=== PATIENT | female | born 1935 | race Hispanic/Latino ===

== ENCOUNTER 2017-03-04 12:47 | Emergency (ER) | payer MEDICARE, MEDICAID ==
[~2017-03-04 12:47] MED LIST: ALBU8.5H4 INHALATION; ASPI-973 PO; ATRINH INH; BECL8.7A6 IH; CALC117719 PO; CHOL100045 PO; HYDR-4003 PO; HYDR25TA4 PO; IBUP200C PO; LORA10CA PO; LOSA50TA37 PO; METF850T2 PO; PANT40TA3 PO; PRAM0.256 PO; PRAV40TA PO
--- NOTE | 2017-03-04 12:54 | ED.REPORT ---
HPI-General Illness Date of Service Mar 04, 2017 ED Provider: The patient is an 82 year old female with history of diabetes mellitus, hypertension, COPD, cancer, GERD, and asthma, who was brought to the emergency department by EMS after she had a ground level fall outside of urgent care just prior to arrival. She was going to urgent care for lower extremity cramps that have been ongoing for some time. The patient was being pushed in a wheelchair in front of urgent care when she fell backwards and hit her head on the concrete. She did lose consciousness. Medics did not give her any medications but report the patient continually fell asleep en route to the ED. Nursing Notes Stated Complaint: FALL Nursing Notes Reviewed: Yes Allergies: Coded Allergies: No Known Allergies (Verified , 04/17/16) Scheduled Aspirin (Aspirin) 81 Mg Tablet 81 MG PO DAILY Cholecalciferol (Vitamin D3) (Vitamin D) 1,000 Unit Capsule 1,000 UNIT PO DAILY Hydrochlorothiazide (Hydrochlorothiazide) 25 Mg Tablet 12.5 MG PO DAILY Loratadine (Claritin) 10 Mg Capsule 10 MG PO DAILY Losartan Potassium (Losartan Potassium) 50 Mg Tablet 50 MG PO QAM Metformin (Metformin) 850 Mg Tablet 850 MG PO BID Pantoprazole DR (Pantoprazole DR) 40 Mg Tablet.dr 40 MG PO DAILY Pravastatin (Pravastatin) 40 Mg Tablet 40 MG PO QPM Scheduled PRN Albuterol HFA (Albuterol HFA) 8.5 Gm Hfa.aer.ad 2 PUFF INHALATION Q4H PRN PRN For Wheezing Beclomethasone Dipropionate (Qvar) 8.7 Gm Aer.w.adap 1 GM IH DAILY PRN PRN For Wheezing Calcium Carbonate (Tums Ultra Strength) 1,177 Mg Tab.chew 500 MG PO PRN For Dyspepsia or Heartburn Hydrocodone-Acetaminophen 5-325 mg (Hydrocodone-Acetaminophen 5-325 mg) 1 Each Tablet 1 TABLET PO Q4H PRN PRN For Pain Ibuprofen (Ibuprofen) 200 Mg Capsule 200 MG PO QID PRN PRN For Pain Ipratropium [place] (Atrovent HFA) 200 Puff/12.9 Gm Inhaler 2 PUFF INH QID PRN PRN For Shortness of Breath Pramipexole Dihydrochloride (Pramipexole Dihydrochloride) 0.25 Mg Tablet 0.25 MG PO DAILY PRN PRN For Restlessness General Time Seen by MD: 12:50 Chief Complaint Other (fall) Hx Obtained From: Patient, Other family..., EMS Arrived By: Ambulance Sudden in Onset?: Yes Onset Occurred: Just prior to arrival Symptom Duration: Since onset Caused by: Fall on ground (out of wheelchair) Location: : Head: Neck Quality: Painful Severity: Current: Moderate Severity: Maximum: Moderate Recent Healthcare: No recent hospitalization Similar Sx Previous: No Past Medical History Past Medical History Arthritis Reports: Asthma, COPD, Cancer, Diabetes mellitus, GERD, Hypertension Past Surgical History Reports: Hysterectomy Family History Noncontributory Smoking History Current Every Day Smoker Social History Other Social History: Good social support, Local resident Review of Systems Full Review of Systems Musculoskeletal: Reports: Extremity pain, Neck pain Neurologic: Reports: Change LOC, Headache Complete sys rev & neg: except as marked. Physical Exam Vital Signs Vital Signs Date Time Temp Pulse Resp B/P Pulse Ox O2 Delivery O2 Flow Rate FiO2 03/04/17 14:00 77 20 196/88 93 Room Air 03/04/17 13:20 75 26 195/83 97 Room Air 03/04/17 12:57 36.6 79 20 205/97 99 Room Air Initial VS: Reviewed ENT: Mucous membranes moist, Conjunctiva normal, No scleral icterus Respiratory: Breath sounds normal, Clear to auscultation, No respiratory distress Cardiovascular: Regular rate & rhythm, Heart sounds normal, Intact distal pulses Abdomen / GI: Soft, Non-tender, No guarding, No rebound, No distention Lymphatic: No lymphadenopathy Extremities: Vascular intact, Neuro intact, No swelling Skin: Warm, Dry, No cyanosis Neurologic: Alert, Oriented, Nonfocal Psychiatric: Mood/affect normal, Behavior normal, Normal thought content General/Constitutional: Awake, Alert Head / Eyes: Atraumatic, Normocephalic, PERRL, EOMI Neck: No swelling Trauma - Neck Specific: Positive: Immobilized - C Collar Upper cervical tenderness Back: Atraumatic, Inspection NL, No midline vertebral tend Upper Extremities Upper Extremity / MS: No deformity, Neurologic intact, Vascular intact Lower Extremity / Pelvis / MS: Neurologic intact, Vascular intact When she sat up she had a cramp in her right thigh that appeared to be painful. Neurologic: Speech NL, No motor deficits, No sensory deficits, CN II - XII intact GCS 15 Interpretation & Diagnostics Lab Results Interpretation Result Diagram: 03/04/17 1252 03/04/17 1252 Test 03/04/17 12:52 03/04/17 13:15 White Blood Count 12.5th/mm3 (3.8-10.1) Red Blood Count 4.04mil/mm3 (3.90-5.20) Hemoglobin 11.8g/dL (12.0-15.6) Hematocrit 35.8% (35.0-46.0) Mean Corpuscular Volume 88.6fL (81-100) Mean Corpuscular Hemoglobin 29.2pg (27.0-35.0) Mean Corpuscular Hemoglobin Concent 33.0% (32.0-37.0) Red Cell Distribution Width 14.6% (12.3-15.4) Platelet Count 311bil/L (150-400) Neutrophils (%) (Auto) 59.5% (40-74) Lymphocytes (%) (Auto) 30.7% (14-46) Monocytes (%) (Auto) 8.3% (4-12) Eosinophils (%) (Auto) 0.6% (0-5) Basophils (%) (Auto) 0.5% (0-3) Prothrombin Time 10.0sec (8.1-12.5) Prothromb Time International Ratio 0.94ratio Activated Partial Thromboplast Time 24.8sec (22.8-33.0) Sodium Level 138mEq/L (134-144) Potassium Level 3.7mEq/L (3.5-5.2) Chloride Level 97mEq/L (97-108) Carbon Dioxide Level 23mmol/L (18-29) Blood Urea Nitrogen 18mg/dL (8-27) Creatinine 0.63mg/dL (0.57-1.00) Estimat Glomerular Filtration Rate 130mL/min (>59) Glucose Level 191mg/dL (60-99) Calcium Level 9.5mg/dL (8.5-10.1) Total Bilirubin 0.2mg/dL (0.0-1.2) Aspartate Amino Transf (AST/SGOT) 22U/L (0-50) Alanine Aminotransferase (ALT/SGPT) 20U/L (0-32) Alkaline Phosphatase 98U/L (25-165) Total Protein 7.8g/dL (6.4-8.4) Albumin 4.2g/dL (3.4-5.0) Urine Color Straw (YELLOW) Urine Appearance Clear (CLEAR,HAZY) Urine pH 7.5 (5.0-8.0) Urine Specific [place] 1.015 (1.003-1.035) Urine Protein Negativemg/dL (NEG,TRACE) Urine Glucose (UA) Negativemg/dL (NEGATIVE) Urine Ketones Negativemg/dL (NEGATIVE) Urine Occult Blood Negative (NEGATIVE) Urine Nitrite Negative (NEGATIVE) Urine Bilirubin Negative (NEGATIVE) Urine Urobilinogen Normalmg/dL (NORMAL) Urine Leukocyte Esterase Negative (NEGATIVE) Urine RBC 0-2/hpf (0-2) Urine WBC 0-5/hpf (0-5) Urine Epithelial Cells Occasional/hpf (NONE-MOD) Urine Crystals None seen (NONE SEEN) Urine Bacteria Few/hpf (NONE-FEW) Urine Hyaline Casts None/lpf (NONE) Urine Granular Casts None seen (NONE SEEN) Urine Waxy Casts None seen (NONE SEEN) Urine Red Blood Cell Casts None seen (NONE SEEN) Urine White Blood Cell Casts None seen (NONE SEEN) Urine Mucus None seen (None Seen) Urine Trichomonas None seen (NONE SEEN) Urine Yeast None (NONE SEEN) Urinalysis Comment None Urine Culture Reflexed Not indicated Hold Urine Received (Received) CT Head Interpretation IMPRESSION: 1. Acute likely subdural blood products layer along the tentorium extending along the posterior aspect of the falx cerebri. 2. 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 Dictated by: Noe Trejo M.D. on 03/04/2017 at 13:49 Study: Head CT no contrast Interpretation / Wet Read by: Interpret - Radiologist CT C-Spine Interpretation IMPRESSION: No acute fractures. Age-appropriate degenerative change. Dictated by: Noe Trejo M.D. on 03/04/2017 at 13:56 Study type: CT no contrast Interpretation / Wet Read by: Interpret - Radiologist Re-Eval/Medical Decision Med Decision/Clinical Course Traumatic subdural hematoma. Patient is neurologically intact and awake. She is profoundly hypertensive and will be started on a nicardipine drip. No obvious coagulopathy is found based on lab evaluation. Spine CT is unremarkable. No other obvious injuries identified. Patient will be transferred to [facility] via airlift for definitive care. Source of Hx: Old records, EMS, Family Time of Eval: 13:56 Re-Evaluation/Progress Note: Rechecked the patient. Discussed head CT results, diagnosis, and plan for transfer to [facility]. The patient and family understand and agree with plan. All questions were addressed. Consultation #1: Call Returned at: 13:54 Note: Spoke with the radiologist about the patient's CT results. Consultation #2: Call Returned at: 13:55 Note: Paged [facility] transfer center Consultation #3: Call Returned at: 14:00 Note: Spoke with [facility]. Consultation #4: Call Returned at: 14:25 Note: Spoke with Dr. Nicola Herbert about the patient's case. He accepts the patient for transfer. Counseled Regarding: Diagnosis, Lab results, Need for transfer Discharge & Departure Primary Impression: Traumatic subdural hematoma Encounter type: initial encounter Loss of consciousness presence/duration: with LOC of 30 min or less Qualified Code: S06.5X1A - Traumatic subdural hemorrhage with loss of consciousness of 30 minutes or less, initial encounter Disposition: Transfer, Acute Care Facility Transfer Requested at: 13:58 Receiving Hospital: [facility] Transfer Accepted: Yes Transfer Accepted at: 14:26 Transfer Reason: Higher level of care, Trauma Spoke with: Attending physician (Dr. Nicola Herbert) Patient Status: Stable, Stable for transfer Patient Informed: Yes Discharge Condition All VS Reviewed: Yes Condition: Stable Referrals: Urbano Parson MD (PCP) Crit Care Except Billable Proc Time Spent: 30-74 minutes Services Performed: Patient management by me, Time spent at bedside, Reviewing test results Critical Care Notes: See MDM Scribe Attestation Portions of this note were transcribed by Marianne Dorsey. I, Dr. Deluna personally performed the history, physical exam and medical decision-making; I reviewed and confirmed the accuracy of the information in the transcribed note. Signed by: Fátima Burgos, 03/04/17 at 1500. copies to: Urbano Parson MD, Timothy S DO Mar 04, 2017 12:54 Marianne Dorsey Mar 04, 2017 13:04
[2017-03-04 12:57] VITALS: BP 205/97; PULSE 79; RESP 20; O2SAT 99
[2017-03-04 13:20] VITALS: BP 195/83; PULSE 75; RESP 26; O2SAT 97
[2017-03-04 13:41] LABS: APPEARANCE,URINE CLEAR (CLEAR,HAZY); COLOR,URINE STRAW (YELLOW); OCCULT BLOOD,URINE NEGATIVE (NEGATIVE); PH,URINE 7.5 (5.0-8.0); UROBILINOGEN,URINE NORMAL (NORMAL)
[2017-03-04 13:45] LABS: BASOPHILS % (AUTO) 0.5 % (0-3); EOSINOPHILS % (AUTO) 0.6 % (0-5); MONOCYTES % (AUTO) 8.3 % (4-12); Mean Corpuscular Hemoglobin 29.2 pg (27.0-35.0); Mean Corpuscular Volume 88.6 fL (81-100); NEUTROPHILS % (AUTO) 59.5 % (40-74); Platelet Count 311 bil/L (150-400)
[2017-03-04] MEDS: fentaNYL-PF 50 mCg/mL 2 mL Inj IVPUSH PRN ×2 (13:45→14:26)
[2017-03-04] MEDS ORDERED: fentaNYL-PF 50 mCg/mL 2 mL Inj IVPUSH PRN (13:55)
[2017-03-04] MEDS ORDERED: Ondansetron 2 mg/mL 2 mL Inj IVPUSH PRN (13:55)
[2017-03-04] MEDS ORDERED: NiCARdipine Inj 25 MG in Dextrose 5% 240 ML IV SCH (13:55)
--- NOTE | 2017-03-04 13:58 | DRSVH ---
PROCEDURE: CT BRAIN WITHOUT CONTRAST ([id number]) INDICATIONS: fall, headache, neck pain TECHNIQUE: Noncontrast 4.5 mm thick angled axial sections acquired from the foramen magnum to the vertex, with c oronal reformats. COMPARISON: [facility], CT, CT CHEST ABD PELVIS W CON, 04/17/2016, 22:52. FINDINGS: Image quality: Excellent. CSF spaces: Basal cisterns are patent. No extra-axial fluid collections. Ventricles are normal in size and shape. Increased density along the right tentorium extending along the posterior aspect of the falx consistent with acute blood products likely subdural. Endovascular coils in the expected reg ion of the distal left carotid internal carotid artery. Brain: No midline shift. No intracranial masses. No acute infarction. Subcortical and periventricu lar decreased density consistent with chronic ischemic change. Old left frontoparietal encephalomalac ia. Buckner-white matter interface is normal. Skull and face: Calvarium and visualized facial bones are intact, without suspicious lesions. Right globe postoperative change. Sinuses: Visualized sinuses and mastoids are clear. IMPRESSION: 1. Acute likely subdural blood products layer along the tentorium extending along the posterior aspec t of the falx cerebri. 2. 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 Dictated by: Noe Trejo M.D. on 03/04/2017 at 13:49 Approved by: Noe Trejo M.D. on 03/04/2017 at 13:56
[2017-03-04 14:00] VITALS: BP 196/88; PULSE 77; RESP 20; O2SAT 93
--- NOTE | 2017-03-04 14:01 | DRSVH ---
PROCEDURE: CT CERVICAL SPINE WITHOUT CONTRAST ([id number]) INDICATIONS: fall, headache, neck pain TECHNIQUE: Noncontrast 3 mm thick sections acquired from the skull base to the T4 level. Sagittal and coronal r eformats were then constructed. For radiation dose reduction, the following was used: automated exp osure control, adjustment of mA and/or kV according to patient size. COMPARISON: [facility], CT, CT CHEST ABD PELVIS W CON, 04/17/2016, 22:52. CT angiogram of the neck from 12/29/2012. FINDINGS: Image quality: Excellent. Bones: No fractures or dislocations. C7 vertebral body height loss stable since a December [address] Multilevel intervertebral body disc height loss and osteophyte formation consistent with age-appropri ate degenerative change. Normal cervical vertebral body alignment.. Soft tissues: Prevertebral soft tissues are normal in thickness. No paravertebral hematomas. No ap ical pneumothoraces. IMPRESSION: No acute fractures. Age-appropriate degenerative change. Dictated by: Noe Trejo M.D. on 03/04/2017 at 13:56 Approved by: Noe Trejo M.D. on 03/04/2017 at 13:59
[2017-03-04 14:08] LABS: INR 0.94 ratio
[2017-03-04 15:12] VITALS: BP 156/78; PULSE 79; RESP 22; O2SAT 94
== END 2017-03-04 14:50 | disposition short-term general hospital (02) ==
LOC: EDBD 12:47 → SED 12:47
DX: S06.5X1A Traumatic subdural hemorrhage with loss of consciousness of 30 minutes or less, initial encounter (principal); W18.39XA Other fall on same level, initial encounter; Y93.89 Activity, other specified; Y92.89 Other specified places as the place of occurrence of the external cause; Y99.8 Other external cause status; I10 Essential (primary) hypertension; J45.909 Unspecified asthma, uncomplicated; J44.9 Chronic obstructive pulmonary disease, unspecified; E11.9 Type 2 diabetes mellitus without complications; K21.9 Gastro-esophageal reflux disease without esophagitis; F17.200 Nicotine dependence, unspecified, uncomplicated; Z79.82 Long term (current) use of aspirin; Z79.84 Long term (current) use of oral hypoglycemic drugs
CPT/HCPCS: 36415; 70450; 72125; 80053; 81000; 82948; 85025; 85610; 85730; 96374; 96375; 96376; 99291; J3010

== ENCOUNTER 2017-03-08 18:43 | Emergency (ER) | payer MEDICARE, MEDICAID ==
[~2017-03-08] VITALS: Ht 157.5 cm; Wt 79.1 kg
[2017-03-08 18:48] VITALS: BP 200/86; PULSE 68; RESP 20; O2SAT 96
[2017-03-08 19:01] VITALS: BP 189/84; PULSE 67; RESP 24; O2SAT 100
[2017-03-08 19:11] VITALS: BP 189/84; PULSE 69; RESP 24
--- NOTE | 2017-03-08 19:11 | ED.REPORT ---
HPI-Head Prob / Injury Date of Service Mar 08, 2017 ED Provider: Piter Abraham DO Pt is a 82 year old female with a history of DM, HTN, COPD, and GERD who presents to the ED complaining of headache. The pt fell out of a wheel chair on 03/04 and hit her head. She was sent to [facility] with a diagnosis of subdural hematoma. The pt was referred to the ED from [facility] for a head CT to compare findings. Nursing Notes Stated Complaint: GROUND LEVEL FALL Chief Complaint: Head, Face, Neck Trauma Nursing Notes Reviewed: Yes Allergies: Coded Allergies: No Known Allergies (Verified , 04/17/16) Scheduled Aspirin (Aspirin) 81 Mg Tablet 81 MG PO DAILY Cholecalciferol (Vitamin D3) (Vitamin D) 1,000 Unit Capsule 1,000 UNIT PO DAILY Glipizide (Glipizide) 10 Mg Tablet 10 MG PO DAILY Hydrochlorothiazide (Hydrochlorothiazide) 25 Mg Tablet 12.5 MG PO DAILY Loratadine (Claritin) 10 Mg Capsule 10 MG PO DAILY Losartan Potassium (Losartan Potassium) 50 Mg Tablet 50 MG PO QAM Metformin (Metformin) 850 Mg Tablet 850 MG PO BID Pantoprazole DR (Pantoprazole DR) 40 Mg Tablet.dr 40 MG PO DAILY Pravastatin (Pravastatin) 40 Mg Tablet 40 MG PO QPM Scheduled PRN Albuterol HFA (Albuterol HFA) 8.5 Gm Hfa.aer.ad 2 PUFF INHALATION Q4H PRN PRN For Wheezing Beclomethasone Dipropionate (Qvar) 8.7 Gm Aer.w.adap 1 GM IH DAILY PRN PRN For Wheezing Calcium Carbonate (Tums Ultra Strength) 1,177 Mg Tab.chew 500 MG PO PRN For Dyspepsia or Heartburn Hydrocodone-Acetaminophen 5-325 mg (Hydrocodone-Acetaminophen 5-325 mg) 1 Each Tablet 1 TABLET PO Q4H PRN PRN For Pain Ibuprofen (Ibuprofen) 200 Mg Capsule 200 MG PO QID PRN PRN For Pain Ipratropium [place] (Atrovent HFA) 200 Puff/12.9 Gm Inhaler 2 PUFF INH QID PRN PRN For Shortness of Breath Pramipexole Dihydrochloride (Pramipexole Dihydrochloride) 0.25 Mg Tablet 0.25 MG PO DAILY PRN PRN For Restlessness General Time Seen by Provider: 19:11 Chief Complaint Blunt head trauma Hx Obtained From: Patient, Other family... Arrived By: Walk-in Onset Occurred: 4 days ago Symptom Duration: Since onset Quality: Painful Severity: Current: Moderate Severity: Maximum: Moderate Recent Healthcare: Recent doctor visit Similar Sx Previous: No Past Medical History Past Medical History Arthritis Reports: Asthma, COPD, Cancer, Diabetes mellitus, GERD, Hypertension Past Surgical History Reports: Hysterectomy Family History Noncontributory Smoking History Current Every Day Smoker Social History Alcohol Use: Denies alcohol use Drug Use: Denies drug use Other Social History: Good social support, Local resident Review of Systems + Head pain Constitutional: Reports: Fatigue, Denies: Fever Neurologic: Reports: Headache Complete sys rev & neg: except as marked. Physical Exam Initial Vital Signs Vital Signs (First) Date Time Temp Pulse Resp B/P Pulse Ox O2 Delivery O2 Flow Rate FiO2 03/08/17 18:48 36.9 68 20 200/86 96 Room Air Initial VS: Reviewed Respiratory: Breath sounds normal, Clear to auscultation, No respiratory distress Cardiovascular: Regular rate & rhythm, Heart sounds normal, Intact distal pulses Abdomen / GI: Soft, Non-tender Extremities: Vascular intact, Neuro intact Skin: Warm, Dry, No cyanosis Psychiatric: Mood/affect normal, Behavior normal General/Constitutional: Awake, Alert, Cooperative Headache and tired. HEAD: Subdural tramatic brain injury present ENT: Atraumatic, Airway patent Neck: Atraumatic, Full range of motion Neurologic: Oriented X3, Speech NL Interpretation & Diagnostics Lab Results Interpretation Result Diagram: 03/08/17 19003/08/17 190 Test 03/08/17 19:00 03/08/17 21:59 White Blood Count 9.5th/mm3 (3.8-10.1) Red Blood Count 4.07mil/mm3 (3.90-5.20) Hemoglobin 12.0g/dL (12.0-15.6) Hematocrit 35.9% (35.0-46.0) Mean Corpuscular Volume 88.2fL (81-100) Mean Corpuscular Hemoglobin 29.5pg (27.0-35.0) Mean Corpuscular Hemoglobin Concent 33.4% (32.0-37.0) Red Cell Distribution Width 14.3% (12.3-15.4) Platelet Count 324bil/L (150-400) Neutrophils (%) (Auto) 54.5% (40-74) Lymphocytes (%) (Auto) 34.6% (14-46) Monocytes (%) (Auto) 8.8% (4-12) Eosinophils (%) (Auto) 1.3% (0-5) Basophils (%) (Auto) 0.5% (0-3) Prothrombin Time 10.0sec (8.1-12.5) Prothromb Time International Ratio 0.94ratio Sodium Level 140mEq/L (134-144) Potassium Level 4.0mEq/L (3.5-5.2) Chloride Level 101mEq/L (97-108) Carbon Dioxide Level 24mmol/L (18-29) Blood Urea Nitrogen 17mg/dL (8-27) Creatinine 0.68mg/dL (0.57-1.00) Estimat Glomerular Filtration Rate 119mL/min (>59) Glucose Level 142mg/dL (60-99) Calcium Level 9.9mg/dL (8.5-10.1) Total Bilirubin 0.2mg/dL (0.0-1.2) Aspartate Amino Transf (AST/SGOT) 22U/L (0-50) Alanine Aminotransferase (ALT/SGPT) 25U/L (0-32) Alkaline Phosphatase 112U/L (25-165) Total Protein 8.0g/dL (6.4-8.4) Albumin 4.2g/dL (3.4-5.0) Hold [place] Top Tube Received (Received) Urine Color Yellow (YELLOW) Urine Appearance Clear (CLEAR,HAZY) Urine pH 6.0 (5.0-8.0) Urine Specific [place] 1.020 (1.003-1.035) Urine Protein Negativemg/dL (NEG,TRACE) Urine Glucose (UA) Negativemg/dL (NEGATIVE) Urine Ketones Tracemg/dL (NEGATIVE) Urine Occult Blood Negative (NEGATIVE) Urine Nitrite Negative (NEGATIVE) Urine Bilirubin Negative (NEGATIVE) Urine Urobilinogen Normalmg/dL (NORMAL) Urine Leukocyte Esterase Negative (NEGATIVE) Urine RBC 0-2/hpf (0-2) Urine WBC 0-5/hpf (0-5) Urine Epithelial Cells Few/hpf (NONE-MOD) Urine Crystals Oxalic acid crystals (NONE Urine Bacteria None/hpf (NONE-FEW) Urine Hyaline Casts None/lpf (NONE) Urine Granular Casts None seen (NONE SEEN) Urine Waxy Casts None seen (NONE SEEN) Urine Red Blood Cell Casts None seen (NONE SEEN) Urine White Blood Cell Casts None seen (NONE SEEN) Urine Mucus None seen (None Seen) Urine Trichomonas None seen (NONE SEEN) Urine Yeast None (NONE SEEN) Urinalysis Comment None Urine Culture Reflexed Not indicated CT Head Interpretation IMPRESSION: 1. Stable appearance of right tentorial hemorrhage consistent with subdural. Finding is stable compared to 03/04/17. Dictated by: Lauren Johnston M.D. on 03/08/2017 at 20:21 Study: Head CT no contrast Interpretation / Wet Read by: Interpret - Radiologist Re-Eval/Medical Decision Med Decision/Clinical Course Repeat head CT is reassuring. Laboratory work reassuring. Zofran and acetaminophen were given. Headache treated well. Blood pressure came down. Consulted with Dr. Gorman Recommends follow-up with Dr. Parson. Source of Hx: Old records Re-Evaluation/Progress : Time of Eval: 21:20 Re-Evaluation/Progress Note: Pt rechecked. Informed pt of plan for discharge. Pt understands and agrees with plan for discharge. F/U instructions and RTER warnings given. All questions addressed. Consultation : Call Returned at: 21:03 Rn On Site: Agrees with eval, Agrees with plan Note: Consult with Dr. Gorman from [facility]. Discussed pt's case and he agrees with plan. Counseled Regarding: Diagnosis, Lab results, Need for follow-up, When/why to return to ED Discharge & Departure Primary Impression: Subdural hematoma Additional Impressions: Concussion Encounter type: subsequent encounter Loss of consciousness presence/duration : without LOC Qualified Code: S06.0X0D - Concussion without loss of consciousness, subsequent encounter Headache Headache type: unspecified Headache chronicity pattern: unspecified pattern Intractability: not intractable Qualified Code: R51 - Headache Disposition: Home All VS Reviewed: Yes Condition: Stable Patient Instructions: Acute Headache (ED), Concussion (ED), Subdural Hematoma ( ED) Additional Instructions: The CAT scan shows that You have a stable subdural hematoma, your symptoms are consistent with a concussion. Take Zofran 1x every 8 hours as needed for nausea. Take Tylenol as directed for headache. Continue resting and taking it easy. Call your primary care provider tomorrow for a follow-up appointment. Return to the Emergency Department for any new or worsening symptoms. The laboratory work was reassuring. I suspect that you will going start feeling better in the next few days. Referrals: Urbano Parson MD (PCP) [place] Attestation Portions of this note were transcribed by Cheryl Blount. I, Dr. Abraham personally performed the history, physical exam and medical decision-making; I reviewed and confirmed the accuracy of the information in the transcribed note. Signed by : Fátima Olivas, 03/08/17 and 23:40. copies to: Urbano Parson MD, Todd P DO Mar 08, 2017 19:11 Cheryl Mccauley Mar 08, 2017 21:12
[2017-03-08] MEDS ORDERED: GLIP10TA10 PO (19:21)
[2017-03-08 19:24] LABS: BASOPHILS % (AUTO) 0.5 % (0-3); EOSINOPHILS % (AUTO) 1.3 % (0-5); MONOCYTES % (AUTO) 8.8 % (4-12); Mean Corpuscular Hemoglobin 29.5 pg (27.0-35.0); Mean Corpuscular Volume 88.2 fL (81-100); NEUTROPHILS % (AUTO) 54.5 % (40-74); Platelet Count 324 bil/L (150-400)
[2017-03-08 19:41] LABS: INR 0.94 ratio
--- NOTE | 2017-03-08 20:26 | DRSVH ---
PROCEDURE: CT BRAIN WITHOUT CONTRAST ([id number]) INDICATIONS: fall, head injury, recent subdural TECHNIQUE: Noncontrast 4.5 mm thick angled axial sections acquired from the foramen magnum to the vertex, with c oronal reformats. COMPARISON: [facility], CT, CT BRAIN WO CON, 03/04/2017, 13:33. FINDINGS: Image quality: Excellent. CSF spaces: Basal cisterns are patent. No extra-axial fluid collections. The ventricles are symmet ary in size and shape. Brain: There is a persistent appearance of increased hyperdensity along the right tentorium and poste rior falx, as identified on the 03/04/17 exam. There has been no appreciable interval change. There i s cerebral volume loss for age, with resultant ventricular and sulcal prominence. There are perivent ricular and deep white matter chronic small vessel ischemic changes. There is intracranial internal carotid artery atherosclerosis. Metallic artifact is present within the region of the distal left in ternal carotid artery most consistent with coil aneurysmal embolization. Skull and face: Calvarium and visualized facial bones appear intact, without suspicious lesions. Sinuses: Visualized sinuses and mastoids are clear. IMPRESSION: 1. Stable appearance of right tentorial hemorrhage consistent with subdural. Finding is stable compar ed to 03/04/17. Dictated by: Lauren Johnston M.D. on 03/08/2017 at 20:21 Approved by: Lauren Johnston M.D. on 03/08/2017 at 20:24
[2017-03-08 21:51] VITALS: BP 153/78
[2017-03-08 22:21] LABS: APPEARANCE,URINE CLEAR (CLEAR,HAZY); COLOR,URINE YELLOW (YELLOW); OCCULT BLOOD,URINE NEGATIVE (NEGATIVE); UROBILINOGEN,URINE NORMAL (NORMAL)
[2017-03-08] MEDS ORDERED: _Ondansetron ODT 4 mg Tablet PO PRN (22:45)
[2017-03-08 23:31] VITALS: BP 153/78; PULSE 69; RESP 22; O2SAT 100
== END 2017-03-08 23:34 | disposition home or self-care (01) ==
LOC: SED 18:43
DX: S06.5X0A Traumatic subdural hemorrhage without loss of consciousness, initial encounter (principal); R51 Headache; W05.0XXA Fall from non-moving wheelchair, initial encounter; Y93.9 Activity, unspecified; Y92.9 Unspecified place or not applicable; Y99.9 Unspecified external cause status; E11.9 Type 2 diabetes mellitus without complications; I10 Essential (primary) hypertension; K21.9 Gastro-esophageal reflux disease without esophagitis; F17.200 Nicotine dependence, unspecified, uncomplicated; Z85.9 Personal history of malignant neoplasm, unspecified; Z79.82 Long term (current) use of aspirin; Z79.84 Long term (current) use of oral hypoglycemic drugs; Z79.899 Other long term (current) drug therapy; Z90.710 Acquired absence of both cervix and uterus

== ENCOUNTER 2017-03-18 14:25 | Emergency (ER) | payer MEDICARE, MEDICAID ==
[~2017-03-18] VITALS: Ht 154.9 cm; Wt 79.1 kg
[~2017-03-18 14:25] MED LIST changes: +GLIP10TA10 PO
[2017-03-18 14:39] VITALS: BP 170/88; PULSE 74; RESP 16; O2SAT 97
--- NOTE | 2017-03-18 15:10 | ED.REPORT ---
HPI-Stroke / CVA Mar 18, 2017 ED Provider: Hill Salazar MD An 82 year old female with a history of diabetes mellitus, hypertension, COPD, GERD, brain aneurysm (2012) and recent subdural hematoma (03/04/2017) presents to the ED with a left sided facial droop that first began last night. Recent associated symptoms include a left-sided headache (unchanged from prior) and left eye tearing. Patient reports drinking coffee this morning having the liquid dribble out the left side of her mouth. Patient was recently diagnosed with a subdural hematoma at [facility] on 03/04 and was also recently seen in the ED on 03/[address] revealed resolving subdural hematoma and she was discharged in stable condition with concussion aftercare instructions. Patient experienced a stroke during the initial operation and following the surgery. She has also been experiencing residual right sided weakness, difficulty with coordination and speech. Her speech has been improving over the past year. Nursing Notes Stated Complaint: DROOPY LEFT SIDE Chief Complaint: Neuro Symptoms/ Deficits Nursing Notes Reviewed: Yes Allergies: Coded Allergies: No Known Allergies (Verified , 03/18/17) Scheduled Acyclovir (Acyclovir) 800 Mg Tab 800 MG PO 5XD Aspirin (Aspirin) 81 Mg Tablet 81 MG PO DAILY (Reported) Cholecalciferol (Vitamin D3) (Vitamin D) 1,000 Unit Capsule 1,000 UNIT PO DAILY (Reported) Glipizide (Glipizide) 10 Mg Tablet 10 MG PO DAILY (Reported) Hydrochlorothiazide (Hydrochlorothiazide) 25 Mg Tablet 12.5 MG PO DAILY ( Reported) Loratadine (Claritin) 10 Mg Capsule 10 MG PO DAILY (Reported) Losartan Potassium (Losartan Potassium) 50 Mg Tablet 50 MG PO QAM (Reported) Metformin (Metformin) 850 Mg Tablet 850 MG PO BID (Reported) Pantoprazole DR (Pantoprazole DR) 40 Mg Tablet.dr 40 MG PO DAILY (Reported) Pravastatin (Pravastatin) 40 Mg Tablet 40 MG PO QPM (Reported) Prednisone (PredniSONE) 20 Mg Tablet 40 MG PO DAILY Scheduled PRN Albuterol HFA (Albuterol HFA) 8.5 Gm Hfa.aer.ad 2 PUFF INHALATION Q4H PRN PRN For Wheezing (Reported) Beclomethasone Dipropionate (Qvar) 8.7 Gm Aer.w.adap 1 GM IH DAILY PRN PRN For Wheezing (Reported) Calcium Carbonate (Tums Ultra Strength) 1,177 Mg Tab.chew 500 MG PO PRN For Dyspepsia or Heartburn (Reported) Hydrocodone-Acetaminophen 5-325 mg (Hydrocodone-Acetaminophen 5-325 mg) 1 Each Tablet 1 TABLET PO Q4H PRN PRN For Pain Ibuprofen (Ibuprofen) 200 Mg Capsule 200 MG PO QID PRN PRN For Pain Ipratropium [place] (Atrovent HFA) 200 Puff/12.9 Gm Inhaler 2 PUFF INH QID PRN PRN For Shortness of Breath (Reported) Pramipexole Dihydrochloride (Pramipexole Dihydrochloride) 0.25 Mg Tablet 0.25 MG PO DAILY PRN PRN For Restlessness (Reported) General Time Seen by Provider: 15:03 Chief Complaint Weakness Left-sided Hx Obtained From: Patient, Son Arrived By: Walk-in Time last known well Last night Sudden in Onset?: Yes Symptom Duration: Since onset Progression Since Onset: Unchanged Associated with: Reports: Headache Pertinent Negative: Pt denies other symptoms Recent Healthcare: Recent doctor visit, Recent hospitalization Risk Factors )( TPA Administration/Criteria Stroke Thrombolytic Therapy : TPA Administered Intravenously: No, exclusion criteria NIH Stroke Scale Level of Consciousness: Alert and responsive (0) Ask Month & Age: Both questions right (0) Open/Close Eyes/Hand Outreach Professional: Performs both tasks (0) Horizontal EO Movements: None (0) Visual Potts: No visual loss (0) Facial Palsy: Minor paralysis (1) Language Aphasia: Loss fluency ID matls (1) Dysarthria: No dysarthria, normal (0) Extinction/Inattention: No exctinct/inattent (0) NIHSS Score: 2 Time NIHSS Performed: 15:21 )( CVA Risk Stratification Risk factors reviewed Past Medical History Past Medical History Subdural hematoma - 03/04/2017 Cerebral aneurysm Arthritis Reports: Asthma, COPD, Cancer, Diabetes mellitus, GERD, Hypertension, Stroke Past Surgical History Reports: Hysterectomy Family History Noncontributory Smoking History Never Smoker Social History Alcohol Use: Denies alcohol use Drug Use: Denies drug use Other Social History: Good social support, Local resident Ambulatory Status Wheelchair Review of Systems Neurologic: Reports: Focal weakness (Left facial weakness), Headache, Slurred speech Complete sys rev & neg: except as marked. Physical Exam Initial Vital Signs Vital Signs (First) Date Time Temp Pulse Resp B/P Pulse Ox O2 Delivery O2 Flow Rate FiO2 03/18/17 14:39 36.8 74 16 170/88 97 Room Air Initial VS: Reviewed Extremities: Vascular intact, Neuro intact, No swelling, No tenderness Skin: Warm, Dry, No cyanosis Psychiatric: Mood/affect normal, Behavior normal, Normal thought content General/Constitutional: Awake, Alert, No acute distress Head / Eyes: Atraumatic, Normocephalic Neck: Atraumatic, Supple Respiratory / Chest: Atraumatic, Breath sounds NL, Breath sounds = bilat, No respiratory distress Cardiovascular: Heart rate NL, Regular rhythm, Heart sounds NL Neurologic: Oriented X3, No sensory deficits, Reflexes equal bilat Cranial Nerve Deficit: Positive: 7 - upper/asymetric frown NEURO: Weak left lower face Weak left eye blink Weak left forehead Interpretation & Diagnostics Lab Results Interpretation Test 03/18/17 15:38 03/18/17 16:33 Hold [place] Top Tube Received (Received) CT Head Interpretation IMPRESSION: 1. Decreasing size of the small right tentorial subdural hematoma. 2. No new intracranial hemorrhage. 3. Extensive chronic small vessel ischemic changes and parenchymal volume loss. Dictated by: Will Galindo M.D. on 03/18/2017 at 14:11 Study: Head CT no contrast Interpretation / Wet Read by: Interpret - Radiologist Re-Eval/Medical Decision Med Decision/Clinical Course I do not believe that stroke is the cause for these symptoms. She does have some degree of a speech deficit but it is inconsistent with the fact that her left face is involved if stroke were the cause for the speech deficit. She has symptoms entirely consistent with Osborn's palsy and therefore I think this is most likely. She has no other neuro deficits. Re-Evaluation/Progress : Time of Eval: 15:43 Re-Evaluation/Progress Note: Patient is informed of her results and diagnosis. All questions are addressed at this time. They understand and agree with the intended treatment plan. 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 Your emergency department evaluation today is reassuring that there is no emergent cause for concern at this time and her CT revealed that the blood in your brain is improving there is no evidence of new bleeding or stroke. I believe that your symptoms are likely due to Osborn's Palsy and her symptoms should resolve within the next few days or weeks. I recommend that you use eye drops frequently throughout the day to prevent dry eyes which are commonly associated with this condition. Please take 40 mg prednisone per day for the next 5 days. Take 800 mg of acyclovir 5 times per day for the next 7 days. Follow up with your primary care physician in the next 2-3 days for a recheck. Please return to the emergency department for any new or worsening symptoms including worsening headache, high fever, shaking chills, nausea, vomiting, lightheadedness, one-sided weakness, or any numbness/tingling. Google Translate Elvin por confiar en nosotros con zarate cuidado esta noche. Zarate evaluacin del departamento de urgencias de [facility] es reconfortante que no hay ninguna causa emergente de preocupacin en dez momento y zarate TC revel que la courtney en zarate cerebro est mejorando no hay evidencia de nueva hemorragia o accidente cerebrovascular. Creo que es probable que aleah sntomas se deban a la Parlisis de Osborn y aleah sntomas deben desaparecer en los prximos ryan o semanas. Le recomiendo que use gotas para los ojos con frecuencia cheo todo el da para prevenir los ojos secos que son comnmente asociados con esta condicin. Por favor tome 40 mg de prednisona por da cheo los prximos 5 ryan. Maili 800 mg de aciclovir 5 veces al da cheo los siguientes 7 ryan. Alexa un seguimiento con zarate mdico de atencin primaria en los prximos 2-3 ryan para jessee revisin. Por favor regrese al departamento de emergencias por cualquier nuevo o empeoramiento de los sntomas, incluyendo dolor de candis, fiebre catherine, escalofr os temblorosos, nuseas, vmitos, aturdimiento, debilidad unilateral o entumecimiento / hormigueo. Referrals: Urbano Parson MD (PCP) Scribe Attestation Portions of this note were transcribed by Tamela Johnson. I, Dr. Salazar personally performed the history, physical exam and medical decision-making; I reviewed and confirmed the accuracy of the information in the transcribed note. Signed by: Fátima England, 03/18/17 [id number]. copies to: Urbano Parson MD, Kirk H MD Mar 18, 2017 15:10 TAMELA JOHNSON Mar 18, 2017 15:24
--- NOTE | 2017-03-18 15:19 | DRSVH ---
PROCEDURE: CT BRAIN WITHOUT CONTRAST ([id number]) INDICATIONS: LEFT SIDED WEAKNESS TECHNIQUE: Noncontrast 4.5 mm thick angled axial sections acquired from the foramen magnum to the vertex, with c oronal reformats. COMPARISON: [facility], CT, CT BRAIN WO CON, 03/08/2017, 20:01. FINDINGS: Image quality: Excellent. Brain: Previously seen them subdural hematoma along the tentorium on the right and the posterior midl ine falx has decreased in the interim. No new areas of acute intra-axial or extra-axial hemorrhage a re evident. No extra-axial fluid collection is identified. There is no midline shift or mass effect . Postoperative changes of the right orbit are present. Otherwise, the orbits are grossly unremarka ble. No large areas of diffusely decreased attenuation are evident within the brain to suggest diffuse cer ebral edema. Large confluent areas of low-attenuation within the periventricular white matter of the brain are similar to the prior study. Vascular coils are seen to overlying the expected location of the left MCA versus distal internal carotid artery. The ventricles and cortical sulci are mildly prominent. Bones: Calvarium and visualized facial bones are grossly intact. The imaged paranasal sinuses and m astoid air cells are clear. IMPRESSION: 1. Decreasing size of the small right tentorial subdural hematoma. 2. No new intracranial hemorrhage. 3. Extensive chronic small vessel ischemic changes and parenchymal volume loss. Dictated by: Will Galindo M.D. on 03/18/2017 at 14:11 Approved by: Will Galindo M.D. on 03/18/2017 at 14:17
[2017-03-18] MEDS ORDERED: PRE20 PO (15:33)
[2017-03-18] MEDS ORDERED: ZOV800 PO (15:33)
[2017-03-18 15:45] VITALS: BP 136/69; PULSE 68; RESP 16; O2SAT 97
[2017-03-18] MEDS ORDERED: predniSONE 20 mg Tablet PO ONE (16:10)
[2017-03-18] MEDS ORDERED: Acyclovir 800 mg Tablet PO ONE (16:10)
[2017-03-18 16:16] VITALS: BP 149/74; PULSE 68; RESP 16; O2SAT 95
== END 2017-03-18 16:21 | disposition home or self-care (01) ==
LOC: SED 14:25
DX: G51.0 Bell's palsy (principal); E11.9 Type 2 diabetes mellitus without complications; I10 Essential (primary) hypertension; K21.9 Gastro-esophageal reflux disease without esophagitis; Z86.73 Personal history of transient ischemic attack (TIA), and cerebral infarction without residual deficits; Z85.9 Personal history of malignant neoplasm, unspecified; Z90.710 Acquired absence of both cervix and uterus; Z79.82 Long term (current) use of aspirin; Z79.84 Long term (current) use of oral hypoglycemic drugs

== ENCOUNTER 2017-04-06 15:12 | Emergency (ER) | payer MEDICARE, MEDICAID ==
[~2017-04-06] VITALS: Ht 154.9 cm; Wt 79.0 kg
[~2017-04-06 15:12] MED LIST changes: +PRE20 PO; +ZOV800 PO
[2017-04-06 15:29] VITALS: BP 154/77; PULSE 94; RESP 16; O2SAT 97
--- NOTE | 2017-04-06 15:46 | ED.REPORT ---
HPI-General Illness Date of Service Apr 06, 2017 ED Provider: Urbano Pineda MD Patient is an 82 year old female with a history of COPD, hypertension, diabetes , brain aneurysm (2012), subdural hematoma (03/04/17) and recent diagnosis of [place] Palsy who presents to the ED due to a lump on her neck onset 3 months ago. Associated symptoms include increasing neck pain, headache, left sided facial droop that has not improved, difficulty swallowing solids and dyspnea with exertion. She denies difficulty swallowing fluids or fever. Patient was seen earlier at who sent here to the ED to rule out a neck abscess. The patient was discharged with steroids and antibiotics after her last visit here at the ED to help with a facial droop that is believed to be [place] Palsy. Nursing Notes Stated Complaint: HEADACHE, LEFT SIDED FACIAL SWELLING Chief Complaint: General Complaint Nursing Notes Reviewed: Yes Allergies: Uncoded Allergies: UNKNOWN ANTIBIOTIC (Allergy, Mild, 04/06/17) Scheduled Acyclovir (Acyclovir) 800 Mg Tab 800 MG PO 5XD Amoxicillin/Clav K 875-125 mg (Augmentin 875-125 mg) 1 Each Tablet 1 TABLET PO BID Aspirin (Aspirin) 81 Mg Tablet 81 MG PO DAILY Cholecalciferol (Vitamin D3) (Vitamin D) 1,000 Unit Capsule 1,000 UNIT PO DAILY Glipizide (Glipizide) 10 Mg Tablet 10 MG PO DAILY Hydrochlorothiazide (Hydrochlorothiazide) 25 Mg Tablet 12.5 MG PO DAILY Loratadine (Claritin) 10 Mg Capsule 10 MG PO DAILY Losartan Potassium (Losartan Potassium) 50 Mg Tablet 50 MG PO QAM Metformin (Metformin) 850 Mg Tablet 850 MG PO BID Pantoprazole DR (Pantoprazole DR) 40 Mg Tablet.dr 40 MG PO DAILY Pravastatin (Pravastatin) 40 Mg Tablet 40 MG PO QPM Prednisone (PredniSONE) 20 Mg Tablet 40 MG PO DAILY Scheduled PRN Albuterol HFA (Albuterol HFA) 8.5 Gm Hfa.aer.ad 2 PUFF INHALATION Q4H PRN PRN For Wheezing Beclomethasone Dipropionate (Qvar) 8.7 Gm Aer.w.adap 1 GM IH DAILY PRN PRN For Wheezing Calcium Carbonate (Tums Ultra Strength) 1,177 Mg Tab.chew 500 MG PO PRN For Dyspepsia or Heartburn Hydrocodone-Acetaminophen 5-325 mg (Hydrocodone-Acetaminophen 5-325 mg) 1 Each Tablet 1 TABLET PO Q4H PRN PRN For Pain Ibuprofen (Ibuprofen) 200 Mg Capsule 200 MG PO QID PRN PRN For Pain Ipratropium [place] (Atrovent HFA) 200 Puff/12.9 Gm Inhaler 2 PUFF INH QID PRN PRN For Shortness of Breath Pramipexole Dihydrochloride (Pramipexole Dihydrochloride) 0.25 Mg Tablet 0.25 MG PO DAILY PRN PRN For Restlessness General Time Seen by MD: 15:46 Chief Complaint Other (lump on left side of neck ) Hx Obtained From: Patient, 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 (3 months) Symptom Duration: Since onset Location: : Neck Quality: Painful Severity: Current: Moderate Recent Healthcare: Recent doctor visit Past Medical History Past Medical History Subdural hematoma - 03/04/2017 Cerebral aneurysm Arthritis bells palsy Reports: Asthma, COPD, Cancer, Diabetes mellitus, GERD, Hypertension, Stroke Past Surgical History Reports: Hysterectomy Family History Noncontributory Smoking History Never Smoker Social History Alcohol Use: Denies alcohol use Drug Use: Denies drug use Other Social History: Good social support, Local resident Ambulatory Status Wheelchair Review of Systems +difficulty swallowing solids +left side facial droop, same as prior Full Review of Systems Constitutional: Denies: Chills, Fever Respiratory: Reports: Dyspnea on exertion Musculoskeletal: Reports: Neck pain Skin: Denies Itching, Denies Rash Neurologic: Reports: Headache, Denies: Numbness, Weakness Complete sys rev & neg: except as marked. Physical Exam Vital Signs Vital Signs Date Time Temp Pulse Resp B/P Pulse Ox O2 Delivery O2 Flow Rate FiO2 04/06/17 17:42 37.4 87 14 146/79 96 Room Air 04/06/17 15:29 37.1 94 16 154/77 97 Room Air Initial VS: Reviewed General/Constitutional: Awake, Alert Head / Eyes: Atraumatic, Normocephalic, PERRL, EOMI ENT: Atraumatic, Airway patent, Mucous membranes moist Neck: Atraumatic, Supple, No masses fullness of the left submandibular area no fluctuance, no erythema, no evidence of abscess Respiratory / Chest: Atraumatic, Breath sounds NL, Breath sounds = bilat, No respiratory distress Cardiovascular: Heart rate NL, Regular rhythm, Heart sounds NL, No murmurs Upper Extremities Upper Extremity / MS: Atraumatic, Full range of motion, Neurologic intact Lower Extremity / Pelvis / MS: Atraumatic, Full range of motion, Neurologic intact Skin: Atraumatic, Color NL, No rash, Warm, Dry Neurologic: Oriented X3, Speech NL, No motor deficits no neuro deficits besides left sided facial droop Psychiatric: Affect NL, Mood NL Interpretation & Diagnostics Lab Results Interpretation Result Diagram: 04/06/17 1612 04/06/17 1612 Test 04/06/17 16:12 04/06/17 18:15 White Blood Count 11.4th/mm3 (3.8-10.1) Red Blood Count 3.87mil/mm3 (3.90-5.20) Hemoglobin 11.6g/dL (12.0-15.6) Hematocrit 34.3% (35.0-46.0) Mean Corpuscular Volume 88.6fL (81-100) Mean Corpuscular Hemoglobin 30.0pg (27.0-35.0) Mean Corpuscular Hemoglobin Concent 33.8% (32.0-37.0) Red Cell Distribution Width 14.9% (12.3-15.4) Platelet Count 266bil/L (150-400) Neutrophils (%) (Auto) 66.0% (40-74) Lymphocytes (%) (Auto) 22.5% (14-46) Monocytes (%) (Auto) 8.2% (4-12) Eosinophils (%) (Auto) 2.6% (0-5) Basophils (%) (Auto) 0.4% (0-3) Sodium Level 135mEq/L (134-144) Potassium Level 4.3mEq/L (3.5-5.2) Chloride Level 95mEq/L (97-108) Carbon Dioxide Level 25mmol/L (18-29) Blood Urea Nitrogen 15mg/dL (8-27) Creatinine 0.60mg/dL (0.57-1.00) Estimat Glomerular Filtration Rate 138mL/min (>59) Glucose Level 253mg/dL (60-99) Calcium Level 9.6mg/dL (8.5-10.1) Total Bilirubin 0.2mg/dL (0.0-1.2) Aspartate Amino Transf (AST/SGOT) 19U/L (0-50) Alanine Aminotransferase (ALT/SGPT) 20U/L (0-32) Alkaline Phosphatase 114U/L (25-165) Total Protein 7.3g/dL (6.4-8.4) Albumin 4.1g/dL (3.4-5.0) Hold [place] Top Tube Received (Received) Hold Urine Received (Received) Re-Eval/Medical Decision Med Decision/Clinical Course 82-year-old female presenting with left facial droop times several weeks and some left submandibular swelling times several months. She was diagnosed with Osborn's palsy several weeks ago and completed the steroids and antibiotics with no improvement. She has no other neurological deficits. She has some mild left submandibular swelling with 2 cm fluid collection on CT. I discussed with the ENT who will see the patient later this week for possible aspiration biopsy. Recommended Augmentin in the meantime. Return precautions if any new or worsening pain, swelling, fevers, redness, any other new or worsening symptoms as below. Discharge & Departure Primary Impression: Osborn's palsy Additional Impression: Neck abscess Disposition: Home Discharge Condition All VS Reviewed: Yes Condition: Stable Patient Instructions: Osborn Palsy (ED) Additional Instructions: Your CT scan was normal and reassuring. Most likely your neck pain is due to [place] Palsy. We cannot rule out an old stroke but there is nothing new on the CT scan. Your neck swelling may be a cyst or may be a developing infection. Take the antibiotics. Call ENT doctor Gross tomorrow for follow up later this week. You can take Tylenol as needed for pain. Follow up with your primary care physician. Return to the emergency department if you develop any new or concerning symptoms including difficulty swallowing fluids, increasing pain or swelling, fevers, nausea/vomiting, redness, other new/worsening symptoms. Referrals: Urbano Parson MD (PCP) Fátima Attestation Portions of this note were transcribed by Leah Fernandez. I, Dr. Asif Ashby personally performed the history, physical exam and medical decision-making; I reviewed and confirmed the accuracy of the information in the transcribed note. Signed by: Fátima Brady, 04/06/17 copies to: Urbano Parson MD, Ben M MD Apr 06, 2017 15:46 Yoana Fernandez Apr 06, 2017 15:56
[2017-04-06 16:22] LABS: BASOPHILS % (AUTO) 0.4 % (0-3); EOSINOPHILS % (AUTO) 2.6 % (0-5); MONOCYTES % (AUTO) 8.2 % (4-12); Mean Corpuscular Volume 88.6 fL (81-100); Platelet Count 266 bil/L (150-400)
[2017-04-06 17:42] VITALS: BP 146/79; PULSE 87; RESP 14; O2SAT 96
[2017-04-06] MEDS ORDERED: AMOX-366 PO (18:45)
--- NOTE | 2017-04-06 18:45 | DRSVH ---
PROCEDURE: CT BRAIN WITHOUT CONTRAST ([id number]) INDICATIONS: L submandibular swelling TECHNIQUE: Noncontrast 4.5 mm thick angled axial sections acquired from the foramen magnum to the vertex, with c oronal reformats. COMPARISON: [facility], CT, CT BRAIN WO CON, 03/08/2017, 20:01. [facility], CT, CT CERVICAL SPINE WO CON, 03/04/2017, 13:33. [facility], CT, CT NECK SOFT TISSUE W CO N, 04/06/2017, 17:46. [facility], CT, CT BRAIN WO CON, 03/18/2017, 14:57. FINDINGS: Image quality: Excellent. CSF spaces: Right tentorial hematoma is no longer visualized. Basal cisterns are patent. No extra-a xial fluid collections. The ventricles are symmetric in size and shape. Brain: No intracranial bleeds or masses. There is moderate cerebral volume loss for age, with resul tant ventricular and sulcal prominence. There are extensive periventricular and deep white matter ch ronic small vessel ischemic changes. There is intracranial internal carotid artery atherosclerosis. Skull and face: Calvarium and visualized facial bones appear intact, without suspicious lesions. Sinuses: Visualized sinuses and mastoids are clear. IMPRESSION: 1. The small right subdural hematoma is longer visualized. No acute intracranial abnormalities. 2. Moderate cerebral volume loss and extensive chronic microvascular ischemic changes. Dictated by: Sae Pfeiffer M.D. on 04/06/2017 at 18:36 Approved by: Sae Pfeiffer M.D. on 04/06/2017 at 18:43
--- NOTE | 2017-04-06 18:59 | DRSVH ---
PROCEDURE: CT NECK SOFT TISSUES WITH CONTRAST ([id number]) INDICATIONS: L submandibular swelling TECHNIQUE: After the administration of intravenous contrast, 3.0 mm axial sections acquired from the sella to th e aortic arch. Additional oblique axial 3.0 mm sections acquired through the pharynx. 3 mm thick co magnus reformats were generated. For radiation dose reduction, the following was used: automated exp osure control. COMPARISON: [facility], CT, CT CERVICAL SPINE WO CON, 03/04/2017, 13:33. FINDINGS: Image quality: Excellent. Lymph nodes: There is a 2.2 x 1.8 cm cystic structure with peripheral enhancement adjacent to the le ft submandibular gland. This could represent a necrotic lymph node or abscess. On the compression CT dated 03/08/2017, it has more solid appearance. No other enlarged lymph nodes seen throughout the neck . Vessels: Visualized vasculature appears patent. Neck spaces: There is mild soft tissue stranding over the left submandibular neck. There is soft tis radha asymmetry in the left tonsillar fossa. The oropharynx, nasopharynx, and pharynx demonstrate no mucosal lesions. The vocal cords, false voca l cords, pyriform sinuses, epiglottis, vallecula, and tongue base all appear normal. Extramucosal sp aces appear unremarkable. Glands: The parotid and submandibular glands appear normal. There are bilateral thyroid nodules with rim calcification. Miscellaneous: Visualized brain and orbits appear normal. Lung apices appear clear. Superficial so ft tissues appear normal. Bones: No suspicious bony lesions. Visualized sinuses and mastoids appear unremarkable. IMPRESSION: 1. There is a 2.2 x 1.8 cm cystic structure with peripheral enhancement adjacent to the left submandi bular gland. This was more solid appearance on 03/08/2017. Differential diagnosis include a chronic ly mph node versus a small abscess. There is mild soft tissue stranding over the left submandibular neck . 2. Peritendinous enlarged. There are bilateral thyroid nodules with rim calcification. Thyroid ultras ound suggested for followup. 3. Soft tissue asymmetry in the left tonsillar fossa. Recommend ENT followup. Dictated by: Sae Pfeiffer M.D. on 04/06/2017 at 18:43 Approved by: Sae Pfeiffer M.D. on 04/06/2017 at 18:58
[2017-04-06 19:53] VITALS: BP 153/81; PULSE 88; RESP 14; O2SAT 93
== END 2017-04-06 19:35 | disposition home or self-care (01) ==
LOC: SED 15:12
DX: G51.0 Bell's palsy (principal); L02.11 Cutaneous abscess of neck; J44.9 Chronic obstructive pulmonary disease, unspecified; I10 Essential (primary) hypertension; E11.9 Type 2 diabetes mellitus without complications; J45.909 Unspecified asthma, uncomplicated; K21.9 Gastro-esophageal reflux disease without esophagitis; Z79.82 Long term (current) use of aspirin; Z79.84 Long term (current) use of oral hypoglycemic drugs; Z86.73 Personal history of transient ischemic attack (TIA), and cerebral infarction without residual deficits
CPT/HCPCS: 36415; 70450; 70491; 80053; 82948; 85025; 96374; 99285; J2270; Q9967